=== PATIENT | male | born 1970 | race Two or more races ===

== ENCOUNTER 2019-01-28 01:39 | Emergency (ER) | payer BC, MEDICAID ==
[2019-01-28 01:53] VITALS: RESP 20; TEMP 96.9
[2019-01-28] MEDS ORDERED: SODIUM CHLORIDE 0.9% 1000ML 1,000 ML IV SCH (02:00)
[2019-01-28 02:14] LABS: BASOPHILS % (AUTO) 1 % (0-3); EOSINOPHILS % (AUTO) 2 % (0-9); HEMATOCRIT 41 % (39-53); HEMOGLOBIN 13.4 gm/dl (13.5-17.7); LYMPHOCYTES % (AUTO) 35.5 % (10-50); MEAN CORPUSCULAR HEMOGLOBIN 26.8 pg (27.0-32.0); MEAN CORPUSCULAR HGB CONC 32.6 gm/dl (32.0-36.0); MEAN CORPUSCULAR VOLUME 82 fL (80-100); MONOCYTES % (AUTO) 6.6 % (0-12); NEUTROPHILS % (AUTO) 54.6 % (37-80)
[2019-01-28 02:30] LABS: AMPHETAMINES NEGATIVE (NEGATIVE); BARBITUATES NEGATIVE (NEGATIVE); BENZODIAZEPINES NEGATIVE (NEGATIVE); CANNABINOL(THC) NEGATIVE (NEGATIVE); COCAINE(COC) NEGATIVE (NEGATIVE); METHADONE NEGATIVE (NEGATIVE); OPIATES(OPI) NEGATIVE (NEGATIVE); TRICYCLIC ANTIDEPRESSANTS NEGATIVE (NEGATIVE)
[2019-01-28 02:31] LABS: METHAMPHETAMINES NEGATIVE (NEGATIVE); OXYCODONE(OXY) NEGATIVE (NEGATIVE); PROPOXYPHENE(PPX) NEGATIVE (NEGATIVE)
[2019-01-28 02:38] LABS: CALCIUM 8.1 mg/dl (8.5-10.1); CARBON DIOXIDE 25.1 mEq/L (21-32); CREATININE 0.7 mg/dl (0.80-1.30); POTASSIUM 3.7 mMol/L (3.5-5.1)
[2019-01-28 02:39] LABS: ALCOHOL 0.321 gm/dl (0.000-0.08)
[2019-01-28 03:54] VITALS: BP 103/66; PULSE 59; O2SAT 99
== END 2019-01-28 03:50 | disposition home or self-care (01) ==
LOC: ED 01:39
DX: S06.0X1A Concussion with loss of consciousness of 30 minutes or less, initial encounter (principal); W19.XXXA Unspecified fall, initial encounter; R40.2362 Coma scale, best motor response, obeys commands, at arrival to emergency department; R40.2142 Coma scale, eyes open, spontaneous, at arrival to emergency department; R40.2252 Coma scale, best verbal response, oriented, at arrival to emergency department; R73.03 Prediabetes; Y90.8 Blood alcohol level of 240 mg/100 ml or more
CPT/HCPCS: 70450; 72125; 80048; 80305; 80307; 85025; 96365; 99283; 99285